=== PATIENT | female | born 1975 | race Caucasian/White ===

== ENCOUNTER 2024-05-05 17:59 | Emergency (ER) | payer SELFPAY ==
[~2024-05-05] VITALS: Ht 165.1 cm; Wt 127.0 kg
[~2024-05-05 17:59] MED LIST: AMOXICILLIN500 MG PO; AUGMENTIN 875 M1 TAB PO; BACTRIM DS 8001 TA1 PO; DIFLUCAN150 MG PO; NO HOME MEDS; PERCOCET 325 MG1 TA7 PO; PRILOSEC20 MG PO; PROVERA10 MG PO; TORADOL10 MG PO; ZITHROMAX Z PA250 MG PO
[2024-05-05] MEDS ORDERED: PREDNISONE50 MG PO (19:26)
[2024-05-05] MEDS ORDERED: methylPREDNISolone sod succ 125 MG VIAL IM ONE (19:30)
[2024-05-05] MEDS ORDERED: HYDROmorphONE Hydrochloride 1 MG/ML SYR IM ONE ×2 (19:30→20:40)
== END 2024-05-05 21:17 | disposition home or self-care (01) ==
LOC: ED 17:59
DX: M54.31 Sciatica, right side (principal); K21.9 Gastro-esophageal reflux disease without esophagitis; Z88.5 Allergy status to narcotic agent; Z98.890 Other specified postprocedural states